=== PATIENT | female | born 1990 | race Asian ===

== ENCOUNTER 2021-05-13 17:21 | Emergency (ER) | payer OTHER ==
[2021-05-13 17:35] VITALS: BP 117/76; PULSE 70; TEMP 98.9; BMI 23.1
[2021-05-13] MEDS ORDERED: DIPHTH,PERTUSS(ACELL),TET 0.5 ML DISP.SYRIN IM ONE ×2 (18:08→18:11)
== END 2021-05-13 18:36 | disposition home or self-care (01) ==
LOC: JERFT 17:21
PROC: 3E0234Z Introduction of Serum, Toxoid and Vaccine into Muscle, Percutaneous Approach (ICD-10-PCS; principal; 2021-05-13)
DX: S61.011A Laceration without foreign body of right thumb without damage to nail, initial encounter (principal)
CPT/HCPCS: 90471; 90715; 99283-25

== ENCOUNTER 2021-07-26 16:24 | Emergency (ER) | payer OTHER ==
[2021-07-26 17:11] VITALS: BP 116/70; PULSE 85; TEMP 97.8; BMI 23.1
[2021-07-26] MEDS ORDERED: ACETAMINOPHEN 500 MG TABLET (FP) PO ONE (18:13)
[2021-07-26 18:54] LABS: BASO % 0.3 % (0-2.0); EOS % 3.3 % (0-4.5); HEMATOCRIT 36.6 % (32.4-45.2); HEMOGLOBIN 12.1 GM/dL (10.7-15.3); LYMPH % 48.3 % (8-40); MCH 26.9 pg (25.7-33.7); MCHC 33.1 g/dl (32.0-36.0); MEAN CELL VOLUME 81.1 fl (80-96); MEAN PLT VOLUME 7.7 fl (7.5-11.1); NEUT % 37.1 % (42.8-82.8); PLATELET COUNT 199 10^3/uL (134-434); RBC 4.52 M/mm3 (3.60-5.2); RDW 17.5 % (11.6-15.6)
[2021-07-26 19:01] LABS: INR 1.03 (0.83-1.09); PROTHROMBIN TIME (PATIENT) 11.8 SEC (9.7-13.0)
[2021-07-26 19:03] LABS: ACTIVATED PTT 32.6 SECONDS (25.2-36.5)
[2021-07-26 19:16] LABS: CALCIUM 9.3 mg/dL (8.5-10.1)
[2021-07-26 19:17] LABS: ALBUMIN 3.8 g/dl (3.4-5.0); BLOOD UREA NITROGEN 11.4 mg/dL (7-18); MAGNESIUM 2.2 mg/dL (1.8-2.4)
[2021-07-26] MEDS ORDERED: ACETAMINOPHEN 500 MG TABLET (FP) ONE (19:19)
[2021-07-26 19:20] LABS: CREATININE 0.6 mg/dL (0.55-1.3)
[2021-07-26 19:21] LABS: TOT PROT 7.2 g/dl (6.4-8.2)
[2021-07-26 19:22] LABS: BILIRUBIN,TOTAL 0.2 mg/dL (0.2-1)
[2021-07-26] MEDS ORDERED: KETOROLAC TROMETHAMINE 30 MG/1 ML VIAL IVPUSH ONE (19:27)
[2021-07-26] MEDS ORDERED: KETOROLAC TROMETHAMINE 30 MG/1 ML VIAL ONE (20:36)
[2021-07-27 13:11] LABS: SARS-CoV-2 NAA Not Detected (Not Detected)
== END 2021-07-26 22:10 | disposition home or self-care (01) ==
LOC: JER 16:24
PROC: 3E0233Z Introduction of Anti-inflammatory into Muscle, Percutaneous Approach (ICD-10-PCS; principal; 2021-07-26)
DX: R07.1 Chest pain on breathing (principal)
CPT/HCPCS: 36415; 71046-TC-FY; 80053; 82550; 82553; 83735; 84484; 85025; 85379; 85610; 85730; 93005; 93010; 99285-25; C9803; U0003; U0005

== ENCOUNTER 2022-02-25 12:50 | Emergency (ER) | payer OTHER ==
[2022-02-25 12:59] VITALS: BP 115/63; PULSE 57; RESP 18; TEMP 98.4; BMI 24.7
[2022-02-25] MEDS ORDERED: KETOROLAC TROMETHAMINE 60 MG/2 ML VIAL IM ONE (13:29)
[2022-02-25] MEDS ORDERED: KETOROLAC TROMETHAMINE 15 MG/ML VIAL ONE (13:32)
== END 2022-02-25 14:35 | disposition home or self-care (01) ==
LOC: JERFT 12:50
PROC: 3E0233Z Introduction of Anti-inflammatory into Muscle, Percutaneous Approach (ICD-10-PCS; principal; 2022-02-25)
DX: S93.401A Sprain of unspecified ligament of right ankle, initial encounter (principal); X50.3XXA Overexertion from repetitive movements, initial encounter
CPT/HCPCS: 73610-TC-RT-FY; 73630-TC-RT-FY; 99284-25

== ENCOUNTER 2022-09-13 10:50 | Emergency (ER) | payer OTHER ==
[2022-09-13 11:04] VITALS: BP 99/58; PULSE 79; RESP 20; TEMP 98.6; BMI 25.7
[2022-09-13] MEDS ORDERED: SODIUM CHLORIDE 0.9% 1000 ML INFUS.BAG IV ONE (13:13)
[2022-09-13 13:57] LABS: BASO % 0.5 % (0-2.0); EOS % 0.1 % (0-4.5); HEMATOCRIT 36.5 % (32.4-45.2); HEMOGLOBIN 12.3 GM/dL (10.7-15.3); MCH 26.8 pg (25.7-33.7); MCHC 33.7 g/dl (32.0-36.0); MEAN CELL VOLUME 79.4 fl (80-96); MEAN PLT VOLUME 8.5 fl (7.5-11.1); MONO % 9.8 % (3.8-10.2); NEUT % 58.6 % (42.8-82.8); PLATELET COUNT 229 10^3/uL (134-434); RDW 13.8 % (11.6-15.6); WHITE BLOOD COUNT 4.4 K/mm3 (4.0-10.0)
[2022-09-13 13:58] LABS: HCG,QUALITATIVE URINE Positive
[2022-09-13 14:01] LABS: EPI CELLS >36 /uL (0-25.1); HYALINE CASTS 2 /uL (0-3.1); URINE APPEARANCE CLOUDY; URINE BACTERIA 3766 /uL (0-1359); URINE BILIRUBIN NEGATIVE (NEGATIVE); URINE COLOR YELLOW; URINE GLUCOSE (UA) NEGATIVE (NEGATIVE); URINE KETONE NEGATIVE (NEGATIVE); URINE LEUK ESTERASE 2+ (NEGATIVE); URINE NITRITE NEGATIVE (NEGATIVE); URINE PROTEIN NEGATIVE (NEGATIVE); URINE RBC 7 /uL (0-23.9); URINE UROBILINOGEN 0.2 mg/dL (0.2-1.0); URINE WBC 53 /uL (0-25.8)
[2022-09-13] MEDS ORDERED: CEFTRIAXONE 1 GM in DEXTROSE 5%-WATER - 100 ML IVPB ONE (14:06)
[2022-09-13] MEDS ORDERED: CEFTRIAXONE 1 GM/50 ML BAG ONE (14:09)
[2022-09-13 14:17] LABS: CALCIUM 9.2 mg/dL (8.5-10.1)
[2022-09-13 14:18] LABS: ALBUMIN 3.7 g/dl (3.4-5.0); BLOOD UREA NITROGEN 10.2 mg/dL (7-18); MAGNESIUM 2.1 mg/dL (1.8-2.4)
[2022-09-13 14:21] LABS: CREATININE 0.6 mg/dL (0.55-1.3)
[2022-09-13 14:22] LABS: TOT PROT 7.2 g/dl (6.4-8.2)
[2022-09-13 14:23] LABS: BILIRUBIN,TOTAL 0.3 mg/dL (0.2-1)
== END 2022-09-13 15:32 | disposition home or self-care (01) ==
LOC: JER 10:50
DX: O23.11 Infections of bladder in pregnancy, first trimester (principal); N30.00 Acute cystitis without hematuria; R42 Dizziness and giddiness; R53.1 Weakness; O26.891 Other specified pregnancy related conditions, first trimester; Z3A.01 Less than 8 weeks gestation of pregnancy; Z20.822 Contact with and (suspected) exposure to COVID-19
CPT/HCPCS: 0241U-QW; 36415; 71045-TC-FY; 80053; 81003; 83735; 84443; 84702; 84703; 85025; 87086; 93005; 93010; 99285-25

== ENCOUNTER 2024-03-06 14:45 | Emergency (ER) | payer OTHER ==
[2024-03-06 14:53] VITALS: BP 110/70; PULSE 74; RESP 18; TEMP 98.3; BMI 27.8
[2024-03-06] MEDS ORDERED: ACETAMINOPHEN INJECTION 100 ML ONE (16:49)
[2024-03-06] MEDS: SODIUM CHLORIDE 0.9% 500 ML INFUS.BAG IV ONE (17:07)
[2024-03-06] MEDS: ACETAMINOPHEN 1000 MG/100 ML BAG IVPB ONE (17:07)
[2024-03-06 17:30] LABS: BASO % 0.2 % (0-2.0); EOS % 0.9 % (0-4.5); HEMATOCRIT 32.3 % (32.4-45.2); HEMOGLOBIN 10.4 GM/dL (10.7-15.3); LYMPH % 34.1 % (8-40); MCH 22.2 pg (25.7-33.7); MEAN CELL VOLUME 69.2 fl (80-96); MEAN PLT VOLUME 7.8 fl (7.5-11.1); MONO % 8.2 % (3.8-10.2); NEUT % 56.6 % (42.8-82.8); PLATELET COUNT 282 10^3/uL (134-434); RBC 4.67 M/mm3 (3.60-5.2); WHITE BLOOD COUNT 4.7 K/mm3 (4.0-10.0)
[2024-03-06 17:46] LABS: POTASSIUM 3.9 mmol/L (3.5-5.1)
[2024-03-06 17:48] LABS: CALCIUM 9.4 mg/dL (8.5-10.1)
[2024-03-06 17:49] LABS: ALBUMIN 3.8 g/dl (3.4-5.0); BLOOD UREA NITROGEN 11.8 mg/dL (7-18)
[2024-03-06 17:52] LABS: CREATININE 0.8 mg/dL (0.55-1.3)
[2024-03-06 17:54] LABS: BILIRUBIN,TOTAL 0.1 mg/dL (0.2-1); TOT PROT 7.4 g/dl (6.4-8.2)
[2024-03-06 19:12] LABS: PH,URINE 5.5 (5.0-8.0); URINE APPEARANCE CLEAR; URINE BILIRUBIN NEGATIVE (NEGATIVE); URINE COLOR YELLOW; URINE GLUCOSE (UA) NEGATIVE (NEGATIVE); URINE KETONE NEGATIVE (NEGATIVE); URINE LEUK ESTERASE NEGATIVE (NEGATIVE); URINE NITRITE NEGATIVE (NEGATIVE); URINE PROTEIN NEGATIVE (NEGATIVE); URINE UROBILINOGEN 0.2 mg/dL (0.2-1.0)
[2024-03-06 19:15] LABS: HCG,QUALITATIVE URINE Negative
== END 2024-03-06 20:29 | disposition home or self-care (01) ==
LOC: JER 14:45
PROC: 3E033NZ Introduction of Analgesics, Hypnotics, Sedatives into Peripheral Vein, Percutaneous Approach (ICD-10-PCS; principal; 2024-03-06)
DX: R51.9 Headache, unspecified (principal); R42 Dizziness and giddiness
CPT/HCPCS: 36415; 70450-TC; 80053; 81003; 84703; 85025; 87086; 99284-25; J0131